=== PATIENT | female | born 1990 | race Caucasian/White ===

== ENCOUNTER 2021-01-03 14:57 | Emergency (ER) | payer OTHER ==
[2021-01-03 17:32] LABS: BASOPHIL 0.4 % (0-2); EOSINOPHIL 0.4 % (0-5); HCT 37.1 % (37.0-47.0); HGB 12.9 g/dl (12.5-16.0); LYMPHOCYTE 16.4 % (15-48); MCH 29.2 pg (25.0-31.0); MCHC 34.8 g/dL (32.0-36.0); MCV 83.9 fL (78.0-100.0); MONOCYTE 6.9 % (0-12); MPV 10.2 fL (6.0-9.5); NEUTROPHIL 75.5 % (41-80); NRBC 0; PLT 319 K/uL (150-400); RBC 4.42 M/uL (4.20-5.40); RDW 12.1 % (11.5-14.0)
[2021-01-03 17:43] LABS: BILIRUBIN 1+ mg/dL (NEGATIVE); BLOOD NEGATIVE Ery/uL (NEGATIVE); CLARITY HAZY (CLEAR); COLOR YELLOW (YELLOW); GLUCOSE (U) NORMAL (NORMAL); LEUKOCYTES TRACE Leu/uL (NEGATIVE); NITRITE NEGATIVE (NEGATIVE); PROTEIN TRACE (LOW) mg/dL (NEGATIVE); SPECIFIC GRAVITY >=1.030 (1.001-1.030)
[2021-01-03 17:46] LABS: BACTERIA 1+; SQUAMOUS EPITHELIAL CELLS 20-50
[2021-01-03 17:48] LABS: CREATININE 0.54 mg/dL (0.51-0.95)
== END 2021-01-03 19:36 | disposition home or self-care (01) ==
LOC: FER 14:57
PROVIDERS: Nurse Practitioner Family
DX: O21.0 Mild hyperemesis gravidarum (principal); O99.511 Diseases of the respiratory system complicating pregnancy, first trimester; J45.909 Unspecified asthma, uncomplicated; Z88.0 Allergy status to penicillin; Z88.8 Allergy status to other drugs, medicaments and biological substances; Z3A.10 10 weeks gestation of pregnancy
CPT/HCPCS: 36415; 80048; 81001; 85025; 99284; J7030

== ENCOUNTER 2021-07-26 13:47 | Inpatient (IN) | payer OTHER ==
[~2021-07-26] VITALS: Ht 165.1 cm; Wt 78.9 kg
[2021-07-26 14:58] LABS: HCT 34.5 % (37.0-47.0); HGB 11.7 g/dl (12.5-16.0); MCH 28.3 pg (25.0-31.0); MCHC 33.9 g/dL (32.0-36.0); MCV 83.5 fL (78.0-100.0); MPV 10.2 fL (6.0-9.5); RBC 4.13 M/uL (4.20-5.40); RDW 12.3 % (11.5-14.0); WBC 14.1 K/uL (4.0-10.5)
[2021-07-26 16:16] LABS: BILIRUBIN NEGATIVE (NEGATIVE); BLOOD NEGATIVE Ery/uL (NEGATIVE); CLARITY CLEAR (CLEAR); COLOR YELLOW (YELLOW); GLUCOSE (U) NORMAL (NORMAL); LEUKOCYTES 2+ Leu/uL (NEGATIVE); NITRITE NEGATIVE (NEGATIVE); PROTEIN NEGATIVE (NEGATIVE); SPECIFIC GRAVITY 1.015 (1.001-1.030); UROBILINOGEN 0.2 mg/dL (0.2-1.0)
[2021-07-26 16:33] LABS: BACTERIA TRACE
[2021-07-27 07:36] LABS: HCT 31.6 % (37.0-47.0); HGB 10.6 g/dl (12.5-16.0); MCH 28.4 pg (25.0-31.0); MCHC 33.5 g/dL (32.0-36.0); MCV 84.7 fL (78.0-100.0); MPV 10.2 fL (6.0-9.5); RBC 3.73 M/uL (4.20-5.40); RDW 12.5 % (11.5-14.0); WBC 14.8 K/uL (4.0-10.5)
== END 2021-07-28 16:09 | disposition home or self-care (01) | DRG 806 ==
LOC: FIS 13:47 → FOB 14:14 → FIS 14:25 → FOB 14:26
PROVIDERS: ADMIT Obstetrics & Gynecology
PROC: 10E0XZZ Delivery of Products of Conception, External Approach (ICD-10-PCS; principal; 2021-07-26)
DX: O99.214 Obesity complicating childbirth (principal); D62 Acute posthemorrhagic anemia; Z37.0 Single live birth; O99.52 Diseases of the respiratory system complicating childbirth; J45.909 Unspecified asthma, uncomplicated; Z3A.39 39 weeks gestation of pregnancy; O99.03 Anemia complicating the puerperium; Z20.822 Contact with and (suspected) exposure to COVID-19; Z88.8 Allergy status to other drugs, medicaments and biological substances; Z88.0 Allergy status to penicillin
CPT/HCPCS: 36415; 81001; 86850; 86900; 86901; J7120; U0002